=== PATIENT | male | born 1995 | race Caucasian/White ===

== ENCOUNTER 2017-04-25 22:55 | Inpatient (IN) | payer OTHER, MEDICAID ==
[~2017-04-25] VITALS: Ht 165.1 cm; Wt 115.4 kg
[2017-04-25 23:02] VITALS: BP 142/66
[2017-04-25 23:42] LABS: BASO % 0.2 % (0.0-1.0); EOS # 0.2 10*3/uL (0.0-0.4); EOS % 1.2 % (1.0-4.0); HEMATOCRIT 45.6 % (42.0-52.0); HEMOGLOBIN 15.7 g/dl (14.0-18.0); IG # 0.1 10*3/uL (0.0-0.1); LYMPH # 1.6 10*3/uL (1.3-4.4); LYMPH % 11.4 % (27.0-41.0); MEAN CELL VOLUME 90.5 fl (80.0-94.0); MEAN CORPUSCULAR HGB 31.2 pg (27.0-31.0); MEAN CORPUSCULAR HGB CONC 34.4 g/dl (33.0-37.0); MEAN PLATELET VOLUME 9.7 fl (9.6-12.3); MONO # 1.1 10*3/uL (0.1-1.0); MONO % 7.6 % (3.0-9.0); NEUT # 11.2 10*3/uL (2.3-7.9); NEUT % 78.8 % (47.0-73.0); PLATELET COUNT AUTOMATED 235 10*3/uL (130-400); RED BLOOD COUNT 5.04 10*6/uL (4.50-5.90); RED CELL DISTRI WIDTH 12.1 % (0-14.5); WHITE BLOOD COUNT 14.2 10*3/uL (4.8-10.8)
[2017-04-25 23:51] LABS: ALBUMIN 3.7 gm/dl (3.1-4.5); ALKALINE PHOSPHATASE 91 U/L (45-117); BILIRUBIN, TOTAL 1.8 mg/dl (0.2-1.0); BUN 11 mg/dl (7-24); CARBON DIOXIDE 30 mmol/L (21-32); CHLORIDE 101 mmol/L (98-107); EST GLOM FILT AFRICAN AMERICAN > 60 ml/min; GLUCOSE 106 mg/dL (65-99); POTASSIUM 3.9 mmol/L (3.5-5.1); SGOT/AST 26 IU/L (3-35); SGPT/ALT 57 U/L (12-78); SODIUM 140 mmol/L (136-145); TOTAL PROTEIN 7.5 gm/dL (6.4-8.2)
[2017-04-26] VITALS: BP 132/82
[2017-04-26 01:40] VITALS: BP 132/82
[2017-04-26] MEDS ORDERED: CLONAZEPAM1 MG PO (02:02)
[2017-04-26] MEDS ORDERED: GEODON40 MG PO ×2 (02:03→02:04)
[2017-04-26] MEDS ORDERED: GEODON80 MG PO (02:04)
[2017-04-26] MEDS ORDERED: ACID REDUCER 1150 MG PO (02:05)
[2017-04-26] MEDS ORDERED: CLONIDINE0.2 MG PO (02:06)
[2017-04-26] MEDS ORDERED: CETIRIZINE10 MG PO (02:06)
[2017-04-26] MEDS ORDERED: AMBIEN10 M1 PO (02:06)
[2017-04-26 06:15] LABS: BASO % 0.2 % (0.0-1.0); HEMATOCRIT 41.2 % (42.0-52.0); HEMOGLOBIN 14.6 g/dl (14.0-18.0); IG # 0.1 10*3/uL (0.0-0.1); LYMPH # 0.6 10*3/uL (1.3-4.4); LYMPH % 4.3 % (27.0-41.0); MEAN CELL VOLUME 89.2 fl (80.0-94.0); MEAN CORPUSCULAR HGB 31.6 pg (27.0-31.0); MEAN CORPUSCULAR HGB CONC 35.4 g/dl (33.0-37.0); MEAN PLATELET VOLUME 10.1 fl (9.6-12.3); MONO # 1.4 10*3/uL (0.1-1.0); MONO % 9.1 % (3.0-9.0); NEUT # 12.7 10*3/uL (2.3-7.9); NEUT % 85.8 % (47.0-73.0); PLATELET COUNT AUTOMATED 194 10*3/uL (130-400); RED BLOOD COUNT 4.62 10*6/uL (4.50-5.90); RED CELL DISTRI WIDTH 12.2 % (0-14.5); WHITE BLOOD COUNT 14.8 10*3/uL (4.8-10.8)
[2017-04-26 06:42] LABS: INTERNATIONAL NORM RATIO 1.1 (2.0-3.5); PROTHROMBIN TIME 11.4 SECONDS (9.0-12.4)
[2017-04-26 06:44] LABS: HEMOGLOBIN A1c 5.3 % (4.8-5.6)
[2017-04-26 06:45] LABS: ALBUMIN 3.1 gm/dl (3.1-4.5); ALKALINE PHOSPHATASE 75 U/L (45-117); BILIRUBIN, TOTAL 2.7 mg/dl (0.2-1.0); BUN 10 mg/dl (7-24); CARBON DIOXIDE 25 mmol/L (21-32); CHLORIDE 104 mmol/L (98-107); CHOLESTEROL 103 mg/dL (<200); EST GLOM FILT AFRICAN AMERICAN > 60 ml/min; FREE T4 1.31 ng/dl (0.76-1.46); GLUCOSE 94 mg/dL (65-99); HDL CHOLESTEROL 57 mg/dl (40-60); LDL CHOLESTEROL 36 mg/dL (9-159); MAGNESIUM 1.3 mg/dL (1.5-2.1); PHOSPHOROUS 2.1 mg/dL (2.5-4.9); POTASSIUM 3.8 mmol/L (3.5-5.1); SGOT/AST 23 IU/L (3-35); SGPT/ALT 47 U/L (12-78); SODIUM 137 mmol/L (136-145); TOTAL PROTEIN 6.7 gm/dL (6.4-8.2); TRIGLYCERIDES 48 mg/dl (<150); VLDL CHOLESTEROL 10 mg/dL (6-40)
[2017-04-26 07:27] LABS: VITAMIN D, 25-HYDROXY 9.1 ng/mL (30-100)
[2017-04-26 07:28] LABS: FOLIC ACID 3.41 ng/mL (>5.38)
[2017-04-26 08:00] VITALS: BP 118/52
[2017-04-26 12:00] VITALS: BP 110/79
[2017-04-26 16:00] VITALS: BP 128/64
[2017-04-26 20:00] VITALS: BP 106/48
[2017-04-27] VITALS: BP 148/66
[2017-04-27 06:38] LABS: BASO % 0.1 % (0.0-1.0); EOS # 0.1 10*3/uL (0.0-0.4); EOS % 0.4 % (1.0-4.0); HEMATOCRIT 36.1 % (42.0-52.0); IG # 0.1 10*3/uL (0.0-0.1); LYMPH # 1.4 10*3/uL (1.3-4.4); LYMPH % 10.3 % (27.0-41.0); MEAN CELL VOLUME 92.1 fl (80.0-94.0); MEAN CORPUSCULAR HGB 31.9 pg (27.0-31.0); MEAN CORPUSCULAR HGB CONC 34.6 g/dl (33.0-37.0); MEAN PLATELET VOLUME 9.8 fl (9.6-12.3); MONO # 0.9 10*3/uL (0.1-1.0); MONO % 6.8 % (3.0-9.0); NEUT # 11.1 10*3/uL (2.3-7.9); NEUT % 81.6 % (47.0-73.0); PLATELET COUNT AUTOMATED 170 10*3/uL (130-400); RED BLOOD COUNT 3.92 10*6/uL (4.50-5.90); RED CELL DISTRI WIDTH 12.2 % (0-14.5); WHITE BLOOD COUNT 13.6 10*3/uL (4.8-10.8)
[2017-04-27 06:52] LABS: HEMOGLOBIN 12.5 g/dl (14.0-18.0)
[2017-04-27 07:05] LABS: ALBUMIN 2.6 gm/dl (3.1-4.5); ALKALINE PHOSPHATASE 61 U/L (45-117); BUN 15 mg/dl (7-24); CARBON DIOXIDE 28 mmol/L (21-32); CHLORIDE 104 mmol/L (98-107); EST GLOM FILT AFRICAN AMERICAN > 60 ml/min; GLUCOSE 85 mg/dL (65-99); SGOT/AST 15 IU/L (3-35); SGPT/ALT 28 U/L (12-78); SODIUM 139 mmol/L (136-145); TOTAL PROTEIN 6.1 gm/dL (6.4-8.2)
[2017-04-27 08:00] VITALS: BP 101/48
[2017-04-27 12:00] VITALS: BP 109/48
[2017-04-27 16:00] VITALS: BP 98/50
[2017-04-27 20:00] VITALS: BP 114/50
[2017-04-27 21:20] LABS: BILIRUBIN 1+ (NEGATIVE); BLOOD NEGATIVE (NEGATIVE); CLARITY SL CLOUDY (CLEAR); COLOR YELLOW (YELLOW); GLUCOSE NEGATIVE (NEGATIVE); KETONE 2+ (NEGATIVE); LEUKO ESTERASE NEGATIVE (NEGATIVE); NITRITE NEGATIVE (NEGATIVE); PROTEIN TRACE (NEGATIVE); SPECIFIC GRAVITY 1.025 (1.005-1.030)
[2017-04-27 22:18] LABS: BACTERIA TRACE; WBC 0-2 wbc/hpf (0-5)
[2017-04-28] VITALS: BP 105/56
[2017-04-28 07:17] LABS: BASO % 0.2 % (0.0-1.0); EOS # 0.2 10*3/uL (0.0-0.4); EOS % 1.6 % (1.0-4.0); HEMATOCRIT 37.1 % (42.0-52.0); HEMOGLOBIN 12.8 g/dl (14.0-18.0); IG # 0.1 10*3/uL (0.0-0.1); LYMPH # 1.1 10*3/uL (1.3-4.4); LYMPH % 10.5 % (27.0-41.0); MEAN CELL VOLUME 90.7 fl (80.0-94.0); MEAN CORPUSCULAR HGB 31.3 pg (27.0-31.0); MEAN CORPUSCULAR HGB CONC 34.5 g/dl (33.0-37.0); MEAN PLATELET VOLUME 10.3 fl (9.6-12.3); MONO # 0.6 10*3/uL (0.1-1.0); MONO % 6.3 % (3.0-9.0); NEUT # 8.1 10*3/uL (2.3-7.9); NEUT % 80.9 % (47.0-73.0); PLATELET COUNT AUTOMATED 180 10*3/uL (130-400); RED BLOOD COUNT 4.09 10*6/uL (4.50-5.90)
[2017-04-28 07:43] LABS: ALBUMIN 2.4 gm/dl (3.1-4.5); ALKALINE PHOSPHATASE 59 U/L (45-117); BILIRUBIN, TOTAL 1.3 mg/dl (0.2-1.0); BUN 14 mg/dl (7-24); CARBON DIOXIDE 28 mmol/L (21-32); CHLORIDE 104 mmol/L (98-107); EST GLOM FILT AFRICAN AMERICAN > 60 ml/min; GLUCOSE 72 mg/dL (65-99); POTASSIUM 3.9 mmol/L (3.5-5.1); SGOT/AST 11 IU/L (3-35); SGPT/ALT 22 U/L (12-78); SODIUM 138 mmol/L (136-145)
[2017-04-28 08:00] VITALS: BP 139/81
[2017-04-28 12:00] VITALS: BP 131/67
[2017-04-28 16:00] VITALS: BP 134/76
[2017-04-28 20:05] VITALS: BP 115/70
[2017-04-29] VITALS: BP 98/62
[2017-04-29 08:00] VITALS: BP 121/65
[2017-04-29] MEDS ORDERED: NORCO 5-325 TA1 EACH PO (10:50)
[2017-04-29] MEDS ORDERED: FLAGYL500 MG PO (10:50)
[2017-04-29] MEDS ORDERED: Ciprofloxacin500 MG PO (10:50)
[2017-04-29] MEDS ORDERED: VITAMIN D50000 I3 PO (10:50)
== END 2017-04-29 11:58 | disposition home or self-care (01) | DRG 871 ==
LOC: ED 22:55 → EDHOLD 04-26 00:50 → 5E 04-26 00:50
PROVIDERS: Internal Medicine; Internal Medicine Hospice and Palliative Medicine; Nurse Practitioner Family; Student in an Organized Health Care Education/Training Program
DX: A41.9 Sepsis, unspecified organism (principal); N17.0 Acute kidney failure with tubular necrosis; E44.0 Moderate protein-calorie malnutrition; E83.42 Hypomagnesemia; E83.39 Other disorders of phosphorus metabolism; K57.20 Diverticulitis of large intestine with perforation and abscess without bleeding; F84.0 Autistic disorder; E53.8 Deficiency of other specified B group vitamins; R65.20 Severe sepsis without septic shock; E66.01 Morbid (severe) obesity due to excess calories; K59.00 Constipation, unspecified; Z83.3 Family history of diabetes mellitus; Z83.49 Family history of other endocrine, nutritional and metabolic diseases; Z83.79 Family history of other diseases of the digestive system; Z79.899 Other long term (current) drug therapy; Z68.39 Body mass index [BMI] 39.0-39.9, adult

== ENCOUNTER 2019-05-27 20:34 | Emergency (ER) | payer OTHER, MEDICAID ==
[~2019-05-27] VITALS: Wt 120.2 kg
[~2019-05-27 20:34] MED LIST: ACID REDUCER 1150 MG PO; AMBIEN10 M1 PO; CETIRIZINE10 MG PO; CLONAZEPAM1 MG PO; CLONIDINE0.2 MG PO; Ciprofloxacin500 MG PO; FLAGYL500 MG PO; GEODON40 MG PO; GEODON80 MG PO; NORCO 5-325 TA1 EACH PO; VITAMIN D50000 I3 PO
== END 2019-05-27 21:19 | disposition home or self-care (01) ==
LOC: ED 20:34
DX: T81.31XA Disruption of external operation (surgical) wound, not elsewhere classified, initial encounter (principal); E66.9 Obesity, unspecified; Z88.8 Allergy status to other drugs, medicaments and biological substances; Z79.2 Long term (current) use of antibiotics; Y83.8 Other surgical procedures as the cause of abnormal reaction of the patient, or of later complication, without mention of misadventure at the time of the procedure; Z79.899 Other long term (current) drug therapy; Y92.89 Other specified places as the place of occurrence of the external cause

== ENCOUNTER 2019-10-04 05:06 | Emergency (ER) | payer OTHER, MEDICAID ==
[~2019-10-04] VITALS: Ht 165.1 cm; Wt 120.2 kg
[2019-10-04 06:01] LABS: BASO % 0.4 % (0.0-1.0); EOS # 0.2 10*3/uL (0.0-0.4); EOS % 2.2 % (1.0-4.0); HEMATOCRIT 40.6 % (42.0-52.0); HEMOGLOBIN 14.3 g/dl (14.0-18.0); LYMPH # 1.4 10*3/uL (1.3-4.4); LYMPH % 18.8 % (27.0-41.0); MEAN CELL VOLUME 95.1 fl (80.0-94.0); MEAN CORPUSCULAR HGB 33.5 pg (27.0-31.0); MEAN CORPUSCULAR HGB CONC 35.2 g/dl (33.0-37.0); MEAN PLATELET VOLUME 9.1 fl (9.6-12.3); MONO # 0.6 10*3/uL (0.1-1.0); MONO % 8.8 % (3.0-9.0); NEUT # 5.1 10*3/uL (2.3-7.9); NEUT % 69.7 % (47.0-73.0); PLATELET COUNT AUTOMATED 249 10*3/uL (130-400); RED BLOOD COUNT 4.27 10*6/uL (4.50-5.90); RED CELL DISTRI WIDTH 12.7 % (0-14.5); WHITE BLOOD COUNT 7.3 10*3/uL (4.8-10.8)
[2019-10-04 06:09] LABS: ALBUMIN 3.6 gm/dl (3.1-4.5); ALKALINE PHOSPHATASE 91 U/L (45-117); BUN 8 mg/dl (7-24); CHLORIDE 105 mmol/L (98-107); CREATININE 1.15 mg/dL (0.70-1.30); POTASSIUM 3.5 mmol/L (3.5-5.1); SGOT/AST 25 IU/L (3-35); SGPT/ALT 30 U/L (12-78); SODIUM 137 mmol/L (136-145); TOTAL PROTEIN 7.4 gm/dL (6.4-8.2); URIC ACID 5.5 mg/dL (3.5-7.2)
[2019-10-04] MEDS ORDERED: KEFLEX500 M1 PO (08:32)
[2019-10-04] MEDS ORDERED: CLEOCIN HCL300 MG PO (08:32)
== END 2019-10-04 09:08 | disposition home or self-care (01) ==
LOC: ED 05:06
PROVIDERS: Emergency Medicine
DX: M70.21 Olecranon bursitis, right elbow (principal); E66.9 Obesity, unspecified; F84.0 Autistic disorder; L53.9 Erythematous condition, unspecified; Z88.8 Allergy status to other drugs, medicaments and biological substances; Z88.1 Allergy status to other antibiotic agents; Z79.899 Other long term (current) drug therapy; Z79.2 Long term (current) use of antibiotics; Y93.89 Activity, other specified